=== PATIENT | female | born 1930 | race African-American/Black ===

== ENCOUNTER 2016-11-09 07:53 | Outpatient (CLI) | payer MEDICARE, OTHER ==
[2016-11-09 08:34] LABS: ALT (SGPT) 16 U/L (0-55); AST (SGOT) 16 U/L (5-34); Albumin 4.1 g/dL (3.4-4.8); Alkaline Phosphatase 111 U/L (40-150); Anion Gap 20 mmol/L (10-20); BUN (Urea Nitrogen) 30 mg/dL (9.8-20.1); Bilirubin, Total 0.4 mg/dL (0.2-1.2); Calc. Creatinine Clearance 0 mL/min (70-130); Calcium 9.7 mg/dL (7.8-10.44); Carbon Dioxide 23 mmol/L (23-31); Chloride 103 mmol/L (98-107); Estimated GFR-MDRD 47; Globulin 2.9 g/dL (2.4-3.5); Glucose 126 mg/dL (83-110); Potassium 4.3 mmol/L (3.5-5.1); Sodium 142 mmol/L (136-145)
== END 2016-11-09 07:54 | disposition home or self-care (01) ==
LOC: MADLABBHPM 07:53
PROVIDERS: ATTEND Family Medicine
DX: E11.65 Type 2 diabetes mellitus with hyperglycemia (principal)
CPT/HCPCS: 36415; 80053; 83036

== ENCOUNTER 2017-01-14 07:56 | Outpatient (CLI) | payer MEDICARE, OTHER ==
[2017-01-14 08:17] LABS: Hemoglobin A1c 7.1 % (4.0-6.0)
[2017-01-14 08:27] LABS: ALT (SGPT) 14 U/L (0-55); AST (SGOT) 17 U/L (5-34); Albumin 3.8 g/dL (3.4-4.8); Alkaline Phosphatase 98 U/L (40-150); Anion Gap 15 mmol/L (10-20); BUN (Urea Nitrogen) 21 mg/dL (9.8-20.1); Bilirubin, Total 0.6 mg/dL (0.2-1.2); Calc. Creatinine Clearance 0 mL/min (70-130); Calcium 9.7 mg/dL (7.8-10.44); Carbon Dioxide 24 mmol/L (23-31); Cardiac Risk 3.9 (Less than 4.5); Chloride 105 mmol/L (98-107); Cholesterol 193 mg/dL (< 200 Desired); Estimated GFR-MDRD 49; Globulin 2.9 g/dL (2.4-3.5); Glucose 97 mg/dL (83-110); HDL Cholesterol 50 mg/dL (>60 Neg Risk); LDL Cholesterol, Calculated 121 mg/dL; Protein, Total 6.7 g/dL (5.8-8.1); Sodium 140 mmol/L (136-145); Triglycerides 108 mg/dL (Less than 150)
== END 2017-01-14 07:57 ==
LOC: MADLABBHPM 07:56
PROVIDERS: ATTEND Family Medicine
DX: E11.65 Type 2 diabetes mellitus with hyperglycemia (principal)
CPT/HCPCS: 36415; 80053; 80061; 83036

== ENCOUNTER 2017-05-14 07:41 | Outpatient (CLI) | payer MEDICARE, OTHER ==
[2017-05-14 08:32] LABS: ALT (SGPT) 18 U/L (8-55); AST (SGOT) 22 U/L (5-34); Albumin 3.9 g/dL (3.4-4.8); Alkaline Phosphatase 95 U/L (40-150); Anion Gap 14 mmol/L (10-20); BUN (Urea Nitrogen) 26 mg/dL (9.8-20.1); Bilirubin, Total 0.5 mg/dL (0.2-1.2); Calc. Creatinine Clearance 0 mL/min (70-130); Calcium 9.4 mg/dL (7.8-10.44); Carbon Dioxide 25 mmol/L (23-31); Cardiac Risk 3.3 (Less than 4.5); Chloride 107 mmol/L (98-107); Cholesterol 148 mg/dl (< 200 Desired); Estimated GFR-MDRD 48; Globulin 3.1 g/dL (2.4-3.5); Glucose 84 mg/dL (83-110); HDL Cholesterol 45 mg/dL (>60 Neg Risk); LDL Cholesterol, Calculated 84 mg/dL; Potassium 3.9 mmol/L (3.5-5.1); Sodium 142 mmol/L (136-145); Triglycerides 97 mg/dL (Less than 150)
[2017-05-14 08:53] LABS: Free T4 (Free Thyroxine) 0.96 ng/dL (0.70-1.48); Thyroid Stimulating Hormone 0.8955 uIU/mL (0.35-4.94)
[2017-05-14 09:25] LABS: Hemoglobin A1c 6.3 % (4.0-6.0)
[2017-05-14 18:35] LABS: Creatinine, Urine 67.78 mg/dL (47-110); Microalbumin Urine Less than 1.0 mg/dL (0.5-50.0); Microalbumin/Creat Ratio 14.8 mg/g (Less than 30)
== END 2017-05-14 07:42 ==
LOC: MADLABBHPM 07:41
PROVIDERS: ATTEND Family Medicine
DX: M19.90 Unspecified osteoarthritis, unspecified site (principal)
CPT/HCPCS: 36415; 80053; 80061; 82043; 83036; 84439; 84443

== ENCOUNTER 2019-09-19 12:26 | Outpatient (CLI) | payer MEDICARE ==
--- NOTE | 2019-09-19 12:46 | RAD ---
EXAM: 2 views of the right shoulder HISTORY: Shoulder pain COMPARISON: None FINDINGS: There is no evidence of acute fracture or dislocation. Severe degenerative changes are seen . There is a high resting humeral head.. The visualized thorax is unremarkable. IMPRESSION: Severe right shoulder osteoarthritis.
--- NOTE | 2019-09-19 12:48 | RAD ---
EXAM: 2 views of the left shoulder HISTORY: Shoulder pain COMPARISON: None FINDINGS: There is no evidence of acute fracture or dislocation. Severe degenerative changes are seen . There is a high rating humeral head.. The visualized thorax is unremarkable. IMPRESSION: Severe left shoulder osteoarthritis
== END 2019-09-19 12:27 | disposition home or self-care (01) ==
LOC: MADRAD 12:26
PROVIDERS: ATTEND Family Medicine
DX: M19.011 Primary osteoarthritis, right shoulder (principal); M19.012 Primary osteoarthritis, left shoulder

== ENCOUNTER 2020-06-20 15:14 | Outpatient (CLI) | payer MEDICARE ==
--- NOTE | 2020-06-20 16:06 | RAD ---
LEFT SHOULDER THREE VIEWS: 06/20/20 HISTORY: Left shoulder pain. Rotator cuff tear. FINDINGS/IMPRESSION: There are degenerative changes in the glenohumeral and acromioclavicular joints. The humeral head is high riding consistent with a chronic rotator cuff tear. No acute fracture, dislocation, or bony dest ruction is seen. POS: OFF
== END 2020-06-20 15:15 | disposition home or self-care (01) ==
LOC: MADRAD 15:14
PROVIDERS: ATTEND Orthopaedic Surgery
DX: M12.812 Other specific arthropathies, not elsewhere classified, left shoulder (principal); M19.012 Primary osteoarthritis, left shoulder

== ENCOUNTER 2020-11-25 15:57 | Emergency (ER) | payer MEDICARE | END 2020-11-25 16:58 | disposition home or self-care (01) | LOC: MADERS 15:57 | DX: E11.40 Type 2 diabetes mellitus with diabetic neuropathy, unspecified (principal); I10 Essential (primary) hypertension; Z79.84 Long term (current) use of oral hypoglycemic drugs; Z79.899 Other long term (current) drug therapy | CPT/HCPCS: 99283 ==

== ENCOUNTER 2021-03-06 15:07 | Outpatient (CLI) | payer MEDICARE ==
[2021-03-06 15:32] LABS: #Basophils 0.1 thou/uL (0.0-0.2); #Eosinphils 0.2 thou/uL (0.0-0.7); #Lymphocytes 2.3 thou/uL (1.20-3.40); #Monocytes 0.4 thou/uL (0.11-0.59); %Basophils 0.9 % (0.0-1.0); %Lymphocytes 28.9 % (21.0-51.0); %Monocytes 5.3 % (0.0-10.0); %Neutrophils 62.8 % (42.0-75.0); Bilirubin Negative (Negative); Blood, Urine Negative (Negative); Clarity Clear (Clear); Glucose, Urine (Dipstick) Negative (Negative); Hemoglobin 12.7 g/dL (12.0-16.0); INR-International Normal Ratio 0.9; Ketone, Urine Negative (Negative); Leukocyte Trace (Negative); Mean Corpuscular HGB CONC 31.8 g/dL (32.0-36.0); Mean Corpuscular Hemoglobin 29.4 pg (27.0-31.0); Mean Corpuscular Volume 92.3 fL (78.0-98.0); Mean Platelet Volume 8.2 fL (7.4-10.4); Nitrite Negative (Negative); PTT 28.7 sec (22.9-36.1); Platelet Count 208 thou/uL (130-400); Protein, Urine (Dipstick) Negative (Neg-Trace); Prothrombin Time 12.1 sec (12.0-14.7); RBC Distribution Width 11.8 % (11.5-14.5); Red Blood Cell (RBC) Count 4.34 mill/uL (4.20-5.40); Urobilinogen 0.2 mg/dL (Less than 2)
[2021-03-06 15:40] LABS: Bacteria/HPF Rare-Few HPF (None Seen); RBC/HPF 0-3 HPF (0-3); Squamous Epithelial 0-3 HPF (0-3); WBC/HPF 0-3 HPF (0-3)
[2021-03-06 15:42] LABS: ALT (SGPT) 27 U/L (8-55); AST (SGOT) 26 U/L (5-34); Albumin 4.3 g/dL (3.4-4.8); Alkaline Phosphatase 101 U/L (40-110); Anion Gap 18 mmol/L (10-20); BUN (Urea Nitrogen) 23 mg/dL (9.8-20.1); Bilirubin, Total 0.4 mg/dL (0.2-1.2); Calc. Creatinine Clearance 0 mL/min (70-130); Calcium 9.8 mg/dL (7.8-10.44); Carbon Dioxide 23 mmol/L (23-31); Chloride 106 mmol/L (98-107); Globulin 3.2 g/dL (2.4-3.5); Glucose 107 mg/dL (83-110); Potassium 4.6 mmol/L (3.5-5.1); Protein, Total 7.5 g/dL (5.8-8.1); Sodium 142 mmol/L (136-145)
== END 2021-03-06 15:08 | disposition home or self-care (01) ==
LOC: MADLAB 15:07
PROVIDERS: ATTEND Family Medicine
DX: Z01.818 Encounter for other preprocedural examination (principal)
CPT/HCPCS: 36415; 71046; 80053; 81001; 85025; 85610; 85730; 87086

== ENCOUNTER 2021-03-09 09:11 | Emergency (ER) | payer MEDICARE ==
[~2021-03-09 09:11] MED LIST: Sodium Chloride 0.9% 1,000 ML BAG ONE
[2021-03-09] MEDS ORDERED: Ondansetron PF 4 MG/2 ML Vial ONE (09:55)
[2021-03-09] MEDS ORDERED: Rabies Vaccine Human 2.5 UNITS VIAL ONE (09:55)
[2021-03-09] MEDS ORDERED: Pantoprazole 40 MG VIAL ONE (09:55)
[2021-03-09 09:58] LABS: #Basophils 0.1 thou/uL (0.0-0.2); #Eosinphils 0.1 thou/uL (0.0-0.7); #Lymphocytes 1.7 thou/uL (1.20-3.40); #Monocytes 0.4 thou/uL (0.11-0.59); #Neutrophils 12.2 thou/uL (1.40-6.50); %Basophils 0.6 % (0.0-1.0); %Eosinophils 0.5 % (0.0-10.0); %Lymphocytes 11.4 % (21.0-51.0); %Neutrophils 84.5 % (42.0-75.0); Mean Corpuscular HGB CONC 32.6 g/dL (32.0-36.0); Mean Corpuscular Hemoglobin 29.6 pg (27.0-31.0); Mean Corpuscular Volume 90.9 fL (78.0-98.0); Mean Platelet Volume 8.4 fL (7.4-10.4); Platelet Count 212 thou/uL (130-400); RBC Distribution Width 11.7 % (11.5-14.5); Red Blood Cell (RBC) Count 4.41 mill/uL (4.20-5.40); White Blood Cell (WBC) Count 14.5 thou/uL (4.8-10.8)
[2021-03-09 10:11] LABS: ALT (SGPT) 20 U/L (8-55); AST (SGOT) 20 U/L (5-34); Alkaline Phosphatase 104 U/L (40-110); Anion Gap 19 mmol/L (10-20); BUN (Urea Nitrogen) 21 mg/dL (9.8-20.1); Bilirubin, Total 0.5 mg/dL (0.2-1.2); CK (CPK) 200 U/L (29-168); CRP (Inflammatory) Less than 0.50 mg/dL (= or < 0.5); Calc. Creatinine Clearance 0 mL/min (70-130); Calcium 9.2 mg/dL (7.8-10.44); Carbon Dioxide 20 mmol/L (23-31); Chloride 105 mmol/L (98-107); Globulin 2.8 g/dL (2.4-3.5); Glucose 259 mg/dL (83-110); Potassium 4.2 mmol/L (3.5-5.1); Protein, Total 6.8 g/dL (5.8-8.1); Sodium 140 mmol/L (136-145)
[2021-03-09] MEDS ORDERED: Mag-Al Plus 1200 MG/1200 MG/120 MG/30 ML UDCUP ONE (10:11)
[2021-03-09] MEDS ORDERED: Lidocaine Viscous Sol 2% 15 ml UD Cup ONE (10:11)
[2021-03-09] MEDS ORDERED: Morphine 2 MG/ML VIAL ONE ×2 (10:28→11:29)
[2021-03-09] MEDS ORDERED: Sodium Chloride 0.9% 1,000 ML ONE (10:28)
[2021-03-09] MEDS ORDERED: Metoclopramide HCl 10 MG/2 ML VIAL ONE (11:29)
[2021-03-09 12:21] LABS: Bilirubin Negative (Negative); Blood, Urine Negative (Negative); Clarity Clear (Clear); Glucose, Urine (Dipstick) Negative (Negative); Ketone, Urine 15 mg/dL (Negative); Leukocyte Negative (Negative); Nitrite Negative (Negative); Protein, Urine (Dipstick) Negative (Neg-Trace); Urobilinogen 0.2 mg/dL (Less than 2)
[2021-03-09] MEDS ORDERED: Iopamidol 370 76% 100 ML VIAL ONE (13:15)
== END 2021-03-09 13:16 | disposition short-term general hospital (02) ==
LOC: MADERS 09:11
DX: K56.609 Unspecified intestinal obstruction, unspecified as to partial versus complete obstruction (principal); K52.9 Noninfective gastroenteritis and colitis, unspecified; E11.9 Type 2 diabetes mellitus without complications; I10 Essential (primary) hypertension; Z79.899 Other long term (current) drug therapy; Z79.84 Long term (current) use of oral hypoglycemic drugs
CPT/HCPCS: 71045; 74177; 80053; 81003; 82150; 82550; 83690; 84484; 85025; 86140; 93005; 94760; J2270; 90675; 96374; 96375; 96376; C9113; J2405; J2765; J7050; Q9967

== ENCOUNTER 2021-03-24 13:34 | Inpatient (IN) | payer MEDICARE ==
[2021-03-24] MEDS: Gabapentin 100 MG CAP PO SCH (21:18)
[2021-03-24] MEDS: Atorvastatin Calcium 10 MG TAB PO SCH (21:19)
[2021-03-24] MEDS: Transdermal Patch Removal TOP SCH (21:21)
[2021-03-25] MEDS: metFORMIN 500 MG TAB PO SCH (08:49)
[2021-03-25] MEDS: Amlodipine 5 MG TAB PO SCH (08:50)
[2021-03-25] MEDS: Gabapentin 100 MG CAP PO SCH ×2 (08:51→20:10)
[2021-03-25] MEDS: Lidocaine 5% Patch TD SCH (08:51)
[2021-03-25] MEDS: Ferrous Sulfate 325 MG TAB PO SCH (08:51)
[2021-03-25] MEDS: Lisinopril 10 MG TAB PO SCH (10:14)
[2021-03-25 10:15] LABS: Anion Gap 15 mmol/L (10-20); BUN (Urea Nitrogen) 39 mg/dL (9.8-20.1); Calc. Creatinine Clearance 40 mL/min (70-130); Calcium 8.8 mg/dL (7.8-10.44); Carbon Dioxide 24 mmol/L (23-31); Chloride 105 mmol/L (98-107); Potassium 5.4 mmol/L (3.5-5.1); Sodium 139 mmol/L (136-145)
[2021-03-25 10:16] LABS: Glucose 162 mg/dL (83-110)
[2021-03-25] MEDS ORDERED: Dextrose 50% Abboject 50 ML SYRINGE SLOW IVP SCH (10:45)
[2021-03-25] MEDS ORDERED: Acetaminophen 500 MG TAB PO PRN (19:59)
[2021-03-25] MEDS: Acetaminophen 500 MG TAB PO PRN (20:09)
[2021-03-25] MEDS: Atorvastatin Calcium 10 MG TAB PO SCH (20:10)
[2021-03-25] MEDS: Transdermal Patch Removal TOP SCH (20:11)
[2021-03-26 05:29] LABS: Anion Gap 13 mmol/L (10-20); BUN (Urea Nitrogen) 38 mg/dL (9.8-20.1); Calc. Creatinine Clearance 40 mL/min (70-130); Carbon Dioxide 23 mmol/L (23-31); Chloride 108 mmol/L (98-107); Glucose 90 mg/dL (83-110); Potassium 5.1 mmol/L (3.5-5.1); Sodium 139 mmol/L (136-145)
[2021-03-26] MEDS: Ferrous Sulfate 325 MG TAB PO SCH (09:04)
[2021-03-26] MEDS: metFORMIN 500 MG TAB PO SCH (09:04)
[2021-03-26] MEDS: Lidocaine 5% Patch TD SCH (09:04)
[2021-03-26] MEDS: Lisinopril 10 MG TAB PO SCH (09:05)
[2021-03-26] MEDS: Gabapentin 100 MG CAP PO SCH ×2 (09:05→20:04)
[2021-03-26] MEDS: Amlodipine 5 MG TAB PO SCH (09:05)
[2021-03-26] MEDS: Atorvastatin Calcium 10 MG TAB PO SCH (20:05)
[2021-03-26] MEDS: Transdermal Patch Removal TOP SCH (20:06)
[2021-03-26] MEDS: Acetaminophen 500 MG TAB PO PRN (20:09)
[2021-03-27] MEDS: Gabapentin 100 MG CAP PO SCH ×2 (08:34→19:52)
[2021-03-27] MEDS: metFORMIN 500 MG TAB PO SCH (08:34)
[2021-03-27] MEDS: Ferrous Sulfate 325 MG TAB PO SCH (08:34)
[2021-03-27] MEDS: Lisinopril 10 MG TAB PO SCH (08:34)
[2021-03-27] MEDS: Lidocaine 5% Patch TD SCH (08:35)
[2021-03-27] MEDS: Amlodipine 5 MG TAB PO SCH (08:35)
[2021-03-27] MEDS: Acetaminophen 500 MG TAB PO PRN ×2 (12:09→19:54)
[2021-03-27] MEDS: Atorvastatin Calcium 10 MG TAB PO SCH (19:52)
[2021-03-27] MEDS: Transdermal Patch Removal TOP SCH (19:52)
[2021-03-28] MEDS: Ferrous Sulfate 325 MG TAB PO SCH (08:23)
[2021-03-28] MEDS: Amlodipine 5 MG TAB PO SCH (08:35)
[2021-03-28] MEDS: Lisinopril 10 MG TAB PO SCH (08:35)
[2021-03-28] MEDS: Gabapentin 100 MG CAP PO SCH ×2 (08:36→20:51)
[2021-03-28] MEDS: Lidocaine 5% Patch TD SCH (08:37)
[2021-03-28] MEDS: metFORMIN 500 MG TAB PO SCH (08:37)
[2021-03-28] MEDS: Acetaminophen 500 MG TAB PO PRN (08:39)
[2021-03-28] MEDS: Atorvastatin Calcium 10 MG TAB PO SCH (20:50)
[2021-03-28] MEDS: Transdermal Patch Removal TOP SCH (21:33)
[2021-03-29] MEDS: Acetaminophen 500 MG TAB PO PRN (06:24)
[2021-03-29] MEDS: Gabapentin 100 MG CAP PO SCH ×2 (08:25→20:52)
[2021-03-29] MEDS: Ferrous Sulfate 325 MG TAB PO SCH (08:25)
[2021-03-29] MEDS: metFORMIN 500 MG TAB PO SCH (08:26)
[2021-03-29] MEDS: Amlodipine 5 MG TAB PO SCH (08:27)
[2021-03-29] MEDS: Lisinopril 10 MG TAB PO SCH (08:27)
[2021-03-29] MEDS: Lidocaine 5% Patch TD SCH (08:27)
[2021-03-29] MEDS: Atorvastatin Calcium 10 MG TAB PO SCH (20:51)
[2021-03-29] MEDS: Transdermal Patch Removal TOP SCH (20:53)
[2021-03-30] MEDS: Ferrous Sulfate 325 MG TAB PO SCH (08:29)
[2021-03-30] MEDS: metFORMIN 500 MG TAB PO SCH (08:29)
[2021-03-30] MEDS: Gabapentin 100 MG CAP PO SCH ×2 (08:30→20:55)
[2021-03-30] MEDS: Amlodipine 5 MG TAB PO SCH (08:30)
[2021-03-30] MEDS: Lisinopril 10 MG TAB PO SCH (08:32)
[2021-03-30] MEDS: Lidocaine 5% Patch TD SCH (08:32)
[2021-03-30] MEDS: Atorvastatin Calcium 10 MG TAB PO SCH (20:55)
[2021-03-30] MEDS: Transdermal Patch Removal TOP SCH (20:59)
[2021-03-31] MEDS: Acetaminophen 500 MG TAB PO PRN ×2 (05:44→10:16)
[2021-03-31] MEDS: metFORMIN 500 MG TAB PO SCH (08:16)
[2021-03-31] MEDS: Ferrous Sulfate 325 MG TAB PO SCH (08:17)
[2021-03-31] MEDS: Amlodipine 5 MG TAB PO SCH (10:10)
[2021-03-31] MEDS: Gabapentin 100 MG CAP PO SCH ×2 (10:12→20:13)
[2021-03-31] MEDS: Lidocaine 5% Patch TD SCH (10:13)
[2021-03-31] MEDS: Lisinopril 10 MG TAB PO SCH (10:14)
[2021-03-31] MEDS: Transdermal Patch Removal TOP SCH (20:14)
[2021-03-31] MEDS: Atorvastatin Calcium 10 MG TAB PO SCH (20:14)
[2021-04-01] MEDS: Gabapentin 100 MG CAP PO SCH ×2 (08:32→20:38)
[2021-04-01] MEDS: metFORMIN 500 MG TAB PO SCH (08:32)
[2021-04-01] MEDS: Ferrous Sulfate 325 MG TAB PO SCH (08:32)
[2021-04-01] MEDS: Lisinopril 10 MG TAB PO SCH (08:32)
[2021-04-01] MEDS: Amlodipine 5 MG TAB PO SCH (08:33)
[2021-04-01] MEDS: Lidocaine 5% Patch TD SCH (08:33)
[2021-04-01] MEDS: Atorvastatin Calcium 10 MG TAB PO SCH (20:38)
[2021-04-01] MEDS: Transdermal Patch Removal TOP SCH (20:39)
[2021-04-02] MEDS: Lidocaine 5% Patch TD SCH (08:47)
[2021-04-02] MEDS: metFORMIN 500 MG TAB PO SCH (08:48)
[2021-04-02] MEDS: Gabapentin 100 MG CAP PO SCH ×2 (08:48→20:13)
[2021-04-02] MEDS: Amlodipine 5 MG TAB PO SCH (08:48)
[2021-04-02] MEDS: Lisinopril 10 MG TAB PO SCH (08:49)
[2021-04-02] MEDS: Ferrous Sulfate 325 MG TAB PO SCH (08:49)
[2021-04-02] MEDS: Atorvastatin Calcium 10 MG TAB PO SCH (20:13)
[2021-04-02] MEDS: Transdermal Patch Removal TOP SCH (20:14)
[2021-04-03] MEDS: Ferrous Sulfate 325 MG TAB PO SCH (08:23)
[2021-04-03] MEDS: metFORMIN 500 MG TAB PO SCH (08:24)
[2021-04-03] MEDS: Amlodipine 5 MG TAB PO SCH (08:24)
[2021-04-03] MEDS: Gabapentin 100 MG CAP PO SCH ×2 (08:25→21:24)
[2021-04-03] MEDS: Lisinopril 10 MG TAB PO SCH (08:26)
[2021-04-03] MEDS: Lidocaine 5% Patch TD SCH (08:47)
[2021-04-03] MEDS: Atorvastatin Calcium 10 MG TAB PO SCH (21:24)
[2021-04-03] MEDS: Transdermal Patch Removal TOP SCH (21:26)
[2021-04-04] MEDS: metFORMIN 500 MG TAB PO SCH (08:42)
[2021-04-04] MEDS: Ferrous Sulfate 325 MG TAB PO SCH (08:42)
[2021-04-04] MEDS: Amlodipine 5 MG TAB PO SCH (08:43)
[2021-04-04] MEDS: Gabapentin 100 MG CAP PO SCH ×2 (08:44→22:01)
[2021-04-04] MEDS: Lisinopril 10 MG TAB PO SCH (08:45)
[2021-04-04] MEDS: Lidocaine 5% Patch TD SCH (08:45)
[2021-04-04] MEDS: Transdermal Patch Removal TOP SCH (22:01)
[2021-04-04] MEDS: Atorvastatin Calcium 10 MG TAB PO SCH (22:02)
[2021-04-04] MEDS: Acetaminophen 500 MG TAB PO PRN (22:05)
[2021-04-05] MEDS: Gabapentin 100 MG CAP PO SCH ×2 (09:36→21:45)
[2021-04-05] MEDS: metFORMIN 500 MG TAB PO SCH (09:36)
[2021-04-05] MEDS: Ferrous Sulfate 325 MG TAB PO SCH (09:36)
[2021-04-05] MEDS: Lidocaine 5% Patch TD SCH (09:37)
[2021-04-05] MEDS: Lisinopril 10 MG TAB PO SCH (09:39)
[2021-04-05] MEDS: Amlodipine 5 MG TAB PO SCH (09:39)
[2021-04-05] MEDS: Atorvastatin Calcium 10 MG TAB PO SCH (21:46)
[2021-04-05] MEDS: Transdermal Patch Removal TOP SCH (21:46)
[2021-04-06] MEDS: Acetaminophen 500 MG TAB PO PRN (06:16)
[2021-04-06] MEDS: Lidocaine 5% Patch TD SCH (08:44)
[2021-04-06] MEDS: Ferrous Sulfate 325 MG TAB PO SCH (08:45)
[2021-04-06] MEDS: Lisinopril 10 MG TAB PO SCH (08:45)
[2021-04-06] MEDS: Amlodipine 5 MG TAB PO SCH (08:45)
[2021-04-06] MEDS: metFORMIN 500 MG TAB PO SCH (08:45)
[2021-04-06] MEDS: Gabapentin 100 MG CAP PO SCH ×2 (08:46→21:26)
[2021-04-06] MEDS: Transdermal Patch Removal TOP SCH (21:25)
[2021-04-06] MEDS: Atorvastatin Calcium 10 MG TAB PO SCH (21:26)
[2021-04-07] MEDS: Ferrous Sulfate 325 MG TAB PO SCH (08:23)
[2021-04-07] MEDS: metFORMIN 500 MG TAB PO SCH (08:23)
[2021-04-07] MEDS: Gabapentin 100 MG CAP PO SCH ×2 (08:24→20:29)
[2021-04-07] MEDS: Amlodipine 5 MG TAB PO SCH (08:25)
[2021-04-07] MEDS: Lisinopril 10 MG TAB PO SCH (08:25)
[2021-04-07] MEDS: Lidocaine 5% Patch TD SCH (08:26)
[2021-04-07 10:07] VITALS: BMI 23.3
[2021-04-07] MEDS: Atorvastatin Calcium 10 MG TAB PO SCH (20:28)
[2021-04-08] MEDS: metFORMIN 500 MG TAB PO SCH (08:46)
[2021-04-08] MEDS: Ferrous Sulfate 325 MG TAB PO SCH (08:46)
[2021-04-08] MEDS: Lisinopril 10 MG TAB PO SCH (08:47)
[2021-04-08] MEDS: Amlodipine 5 MG TAB PO SCH (08:47)
[2021-04-08] MEDS: Acetaminophen 500 MG TAB PO PRN (08:48)
[2021-04-08] MEDS: Gabapentin 100 MG CAP PO SCH ×2 (08:48→20:24)
[2021-04-08] MEDS: Atorvastatin Calcium 10 MG TAB PO SCH (20:24)
[2021-04-09 05:35] LABS: Anion Gap 13 mmol/L (10-20); BUN (Urea Nitrogen) 27 mg/dL (9.8-20.1); Calc. Creatinine Clearance 40 mL/min (70-130); Calcium 8.6 mg/dL (7.8-10.44); Carbon Dioxide 24 mmol/L (23-31); Chloride 107 mmol/L (98-107); Glucose 108 mg/dL (83-110); Potassium 4.6 mmol/L (3.5-5.1); Sodium 139 mmol/L (136-145)
[2021-04-09] MEDS: metFORMIN 500 MG TAB PO SCH (08:59)
[2021-04-09] MEDS: Ferrous Sulfate 325 MG TAB PO SCH (08:59)
[2021-04-09] MEDS: Lisinopril 10 MG TAB PO SCH (09:00)
[2021-04-09] MEDS: Acetaminophen 500 MG TAB PO PRN (09:01)
[2021-04-09] MEDS: Gabapentin 100 MG CAP PO SCH ×2 (09:01→20:33)
[2021-04-09] MEDS: Atorvastatin Calcium 10 MG TAB PO SCH (20:33)
[2021-04-10] MEDS: metFORMIN 500 MG TAB PO SCH (08:09)
[2021-04-10] MEDS: Lisinopril 10 MG TAB PO SCH (08:09)
[2021-04-10] MEDS: Ferrous Sulfate 325 MG TAB PO SCH (08:09)
[2021-04-10] MEDS: Gabapentin 100 MG CAP PO SCH ×2 (08:09→20:37)
[2021-04-10] MEDS: Atorvastatin Calcium 10 MG TAB PO SCH (20:37)
[2021-04-11] MEDS: Ferrous Sulfate 325 MG TAB PO SCH (08:17)
[2021-04-11] MEDS: Gabapentin 100 MG CAP PO SCH (08:17)
[2021-04-11] MEDS: metFORMIN 500 MG TAB PO SCH (08:17)
[2021-04-11] MEDS: Lisinopril 10 MG TAB PO SCH (08:17)
[2021-04-11] MEDS: Acetaminophen 500 MG TAB PO PRN (08:20)
[2021-04-11 13:56] VITALS: BP 129/78; TEMP 97.8
== END 2021-04-11 14:12 | disposition home or self-care (01) | DRG 948 ==
LOC: MADMS 13:40
PROVIDERS: ADMIT Family Medicine; ATTEND Family Medicine
DX: R53.81 Other malaise (principal); D62 Acute posthemorrhagic anemia; K56.609 Unspecified intestinal obstruction, unspecified as to partial versus complete obstruction; I13.0 Hypertensive heart and chronic kidney disease with heart failure and stage 1 through stage 4 chronic kidney disease, or unspecified chronic kidney disease; E11.40 Type 2 diabetes mellitus with diabetic neuropathy, unspecified; E78.2 Mixed hyperlipidemia; Z66 Do not resuscitate; R26.9 Unspecified abnormalities of gait and mobility; N18.30 Chronic kidney disease, stage 3 unspecified; E11.22 Type 2 diabetes mellitus with diabetic chronic kidney disease; G89.29 Other chronic pain; M25.561 Pain in right knee; E11.649 Type 2 diabetes mellitus with hypoglycemia without coma; E87.5 Hyperkalemia; Z79.899 Other long term (current) drug therapy; Z90.49 Acquired absence of other specified parts of digestive tract; Z90.710 Acquired absence of both cervix and uterus; Z88.5 Allergy status to narcotic agent
CPT/HCPCS: 36415; 36416; 80048; J1610